=== PATIENT | male | born 1990 | race Caucasian/White ===

== ENCOUNTER 2023-10-01 10:57 | Emergency (ER) | payer MEDICAID ==
[~2023-10-01] VITALS: Ht 188 cm; Wt 88.5 kg
[2023-10-01 14:11] VITALS: BP 125/80; TEMP 98.1; O2SAT 100
== END 2023-10-01 14:10 | disposition home or self-care (01) ==
LOC: ER 10:57
DX: S92.251A Displaced fracture of navicular [scaphoid] of right foot, initial encounter for closed fracture (principal); W22.8XXA Striking against or struck by other objects, initial encounter; Y93.89 Activity, other specified; Y92.39 Other specified sports and athletic area as the place of occurrence of the external cause; Y99.8 Other external cause status
CPT/HCPCS: 73610-TC; 73630-TC